=== PATIENT | male | born 1985 | race Caucasian/White ===

== ENCOUNTER 2022-08-11 23:18 | Emergency (ER) | payer SELFPAY ==
[2022-08-11] MEDS ORDERED: PROPARACAINE 0.5% OPHTH DROPS 15 ML BTL LEFT EYE STA (23:43)
[2022-08-11] MEDS ORDERED: FLUORESCEIN STRIPS 1 MG STRIP LEFT EYE ONE (23:43)
[2022-08-11] MEDS ORDERED: KETOROLAC 0.5% OPHTH DROPS 5 ML BTL LEFT EYE ONE (23:45)
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
[2022-08-11] MEDS ORDERED: CIPROFLOXACIN 0.3% OPHTH SOLN 5 ML BTL LEFT EYE STA (23:59)
[2022-08-12 00:39] VITALS: BP 125/81; PULSE 70; RESP 20; TEMP 97.9
== END 2022-08-12 00:39 | disposition home or self-care (01) ==
LOC: EC 23:18
DX: S05.01XA Injury of conjunctiva and corneal abrasion without foreign body, right eye, initial encounter (principal); X58.XXXA Exposure to other specified factors, initial encounter
CPT/HCPCS: 99283